=== PATIENT | female | born 1940 | race Caucasian/White ===

== ENCOUNTER 2019-01-18 13:38 | Emergency (ER) | payer OTHER, BC ==
[~2019-01-18] VITALS: Ht 162.6 cm; Wt 95.3 kg
[~2019-01-18 13:38] MED LIST: ALPR0.25 PO; DILT180C67 PO; FAMO40TA7 PO; HYDR-1189 PO; NEBI5TAB3 PO; POTA20TA83 PO; SENNS PO; SPIR25TA6 PO; TELM80TA2 PO; VITD2000 PO
[2019-01-18 13:44] VITALS: BP_SYST 156
[2019-01-18 14:15] LABS: BASOPHILS # (AUTO) 0.2 K/uL (0.0-0.2); BASOPHILS % (AUTO) 1.5 % (0.0-2.0); EOSINOPHILS # (AUTO) 0.2 K/uL (0.0-0.4); EOSINOPHILS % (AUTO) 1.6 % (0.0-4.0); HEMATOCRIT 39.4 % (36-48); LYMPHOCYTES # (AUTO) 3.4 K/uL (1.0-5.5); LYMPHOCYTES % (AUTO) 32.7 % (20.5-51.5); MEAN CORPUSCULAR HEMOGLOBIN 32 pg (27-31); MEAN CORPUSCULAR HGB CONC 33 % (32-36); MEAN CORPUSCULAR VOLUME 97 fL (79.0-98.0); MONOCYTES # (AUTO) 0.5 K/uL (0.0-1.0); MONOCYTES % (AUTO) 4.8 % (1.7-9.3); NEUTROPHILS # (AUTO) 6.2 K/uL (1.8-7.7); NEUTROPHILS % (AUTO) 59.4 % (40.0-70.0); PLATELET COUNT (AUTO) 319 K/uL (130-430); RED BLOOD CELL COUNT(AUTO) 4.07 MIL/uL (4.2-6.2); RED CELL DISTRIBUTION WIDTH 14.7 % (9.0-15.0); WHITE BLOOD COUNT (AUTO) 10.4 K/uL (4.8-10.8)
[2019-01-18 14:20] LABS: ANION GAP 11 (5-15); CALCIUM 9.2 mg/dL (8.4-11.0); CHLORIDE 104 mmol/L (98-107); CREATININE 1.37 mg/dL (0.55-1.30); GLUCOSE 162 mg/dL (70-99); POTASSIUM 4.9 mmol/L (3.5-5.1); SODIUM SERUM 139 mmol/L (136-145); UREA NITROGEN, BLOOD 35 mg/dL (8-21)
[2019-01-18 14:25] LABS: INR 4.2 (0.8-1.2); PROTHROMBIN TIME 40.2 SECS (9.5-12.5)
[2019-01-18 14:31] LABS: ALANINE AMINOTRANSFERASE 14 U/L (12-78); ALBUMIN 3.1 g/dL (3.4-4.8); ASPARTATE AMINOTRANSFERASE 15 U/L (10-37); FREE T4 (FREE THYROXINE) 0.8 ng/dl (0.8-1.5); TOTAL BILIRUBIN 0.2 mg/dL (0.0-1.0)
[2019-01-18 14:32] LABS: ALCOHOL, BLOOD < 3 mg/dL (<10)
[2019-01-18] MEDS ORDERED: Armour Thyroid PO ×2 (14:51)
[2019-01-18] MEDS ORDERED: TELM40TA PO (14:51)
[2019-01-18] MEDS ORDERED: HYDR-4272 PO (14:51)
[2019-01-18] MEDS ORDERED: ESTR1.25 PO (14:51)
[2019-01-18] MEDS ORDERED: OMEP20TA20 PO (14:51)
[2019-01-18] MEDS ORDERED: WARF2.5T2 PO (14:51)
[2019-01-18] MEDS ORDERED: FURO-149 PO (14:51)
[2019-01-18] MEDS ORDERED: WARF5TAB2 PO (14:51)
[2019-01-18] MEDS ORDERED: BIOT5TAB PO (14:51)
[2019-01-18] MEDS ORDERED: GLU500 PO (14:51)
[2019-01-18] MEDS ORDERED: SENN8.6T19 PO (14:51)
[2019-01-18] MEDS ORDERED: CHOL20009 PO (14:51)
[2019-01-18] MEDS ORDERED: OMEG-143 PO (14:51)
[2019-01-18] MEDS ORDERED: MIDAZOLAM HCL 5 MG/5 ML VIAL ONE (16:21)
[2019-01-18 17:22] VITALS: BP_SYST 150
[2019-01-19] MEDS ORDERED: ETOMIDATE 20 MG/ 10 ML VIAL (AMIDATE) IVP ONE (08:00)
== END 2019-01-18 17:22 | disposition short-term general hospital (02) ==
LOC: SED 13:38
DX: I61.9 Nontraumatic intracerebral hemorrhage, unspecified (principal); R53.1 Weakness; E11.9 Type 2 diabetes mellitus without complications; I10 Essential (primary) hypertension; Z95.0 Presence of cardiac pacemaker; Z88.8 Allergy status to other drugs, medicaments and biological substances; Z79.899 Other long term (current) drug therapy
CPT/HCPCS: 31500; 36415; 70450; 71045; 74018; 80053; 82140; 83605; 83880; 84439; 84484; 85025; 85610; 87040; 93005; 99285; G0482; J2250; J3490